=== PATIENT | male | born 1975 | race Caucasian/White ===

== ENCOUNTER 2024-09-25 15:49 | Inpatient (IN) | payer SELFPAY ==
[2024-09-25] VITALS (19 sets, daily range): BP systolic 95–121; BP diastolic 60–89; PULSE 69–106; RESP 14–24; TEMP 36.7; O2SAT 96–99
[~2024-09-25] VITALS: Ht 167.6 cm; Wt 77.1 kg
[2024-09-25] MEDS: HEPARIN 5000 UNITS/ML VIAL IV ONE (16:17)
[2024-09-25] MEDS: ASPIRIN 325MG TABLET PO ONE (16:17)
[2024-09-25] MEDS ORDERED: HEPARIN 1000 UNITS/ML 10ML ONE ×3 (16:17→17:32)
[2024-09-25] MEDS ORDERED: LIDOCAINE HCL 1% 20ML VIAL ONE (16:17)
[2024-09-25] MEDS: SODIUM CHLORIDE 0.9% 500 ML IV ONE (16:17)
[2024-09-25] MEDS ORDERED: IODIXANOL 320 MG/ML 150ML BOTTLE IV ONE (16:17)
[2024-09-25] MEDS ORDERED: MIDAZOLAM HCL 2 MG/2 ML VIAL ONE (16:33)
[2024-09-25] MEDS ORDERED: FENTANYL CITRATE/PF 50MCG/ML 2ML VIAL ONE (16:33)
[2024-09-25] MEDS ORDERED: EPINEPHRINE 0.1MG/ML (1:10,000) 10ML SYR ONE (16:36)
[2024-09-25] MEDS ORDERED: ATROPINE SULFATE 1MG/10ML SYR ONE (16:36)
[2024-09-25 16:40] LABS: BASOPHILS % 0.5 % (0.0-2.0); EOSINOPHILS % 0.7 % (0.0-5.0); HEMATOCRIT. 40.8 % (42.0-52.0); HEMOGLOBIN. 13.7 g/dL (14.0-18.0); LYMPHOCYTES % 20.9 % (20.0-50.0); MEAN CORPUSCULAR HEMOGLOBIN 29.1 pg (28.0-32.0); MEAN CORPUSCULAR HGB CONC 33.5 g/dL (31.0-37.0); MEAN CORPUSCULAR VOLUME 86.9 fL (80.0-94.0); MEAN PLATELET VOLUME 9.9 fl (7.4-10.4); MONOCYTES % 6.7 % (2.0-8.0); NEUTROPHILS % 71.2 % (40.0-76.0); PLATELET 274 x1000/uL (130-400); RED CELL DISTRIBUTION WIDTH 13.8 % (11.6-14.6); WHITE BLOOD COUNT 11.7 x1000/uL (4.5-11.0)
[2024-09-25 16:41] LABS: CHLORIDE 104 mEq/L (98-107); POTASSIUM 3.6 mEq/L (3.5-5.1); SODIUM 138 mEq/L (136-145)
[2024-09-25 16:42] LABS: CALCIUM 10.4 mg/dL (8.7-10.4); CARBON DIOXIDE 21 mEq/L (21-32)
[2024-09-25 16:47] LABS: CREATININE 1.7 mg/dL (0.6-1.3); GLUCOSE 159 mg/dL (70-105); UREA NITROGEN BLOOD 25 mg/dL (9-23)
[2024-09-25 16:48] LABS: TROPONIN I HIGH SENSITIVITY 31 ng/L (3.0-53)
[2024-09-25] MEDS ORDERED: TICAGRELOR 90 MG TABLET PO ONE (17:41)
[2024-09-25] MEDS ORDERED: ACETAMINOPHEN 325MG TABLET PO PRN ×2 (18:30)
[2024-09-25] MEDS ORDERED: DIPHENHYDRAMINE 50MG/ML VIAL IV PRN (18:30)
[2024-09-25] MEDS ORDERED: IPRATROPIUM/ALBUTEROL 0.5-3(2.5)MG/3ML NEB HHN PRN (18:30)
[2024-09-25] MEDS ORDERED: CLONIDINE 0.1MG TABLET PO PRN (18:30)
[2024-09-25] MEDS ORDERED: GUAIFENESIN 200MG/10ML SUGAR FREE UDC PO PRN (18:30)
[2024-09-25] MEDS ORDERED: ASPIRIN 81MG TABLET PO NR (18:45)
[2024-09-25] MEDS ORDERED: TICAGRELOR 90 MG TABLET PO SCH ×2 (18:45)
[2024-09-25] MEDS: PANTOPRAZOLE SODIUM 40 MG/VIAL IV SCH (18:55)
[2024-09-25] MEDS: LISINOPRIL 2.5MG TABLET PO SCH (18:55)
[2024-09-25] MEDS: CARVEDILOL 3.125 MG TABLET PO SCH (18:55)
[2024-09-25] MEDS: TICAGRELOR 90 MG TABLET PO SCH (20:10)
[2024-09-25] MEDS: ATORVASTATIN CALCIUM 40MG TABLET PO SCH (20:11)
[2024-09-25] MEDS: ONDANSETRON HCL 4MG/2ML INJ IV PRN (20:42)
[2024-09-25] MEDS: KCL 20MEQ/100ML PREMIX 100 ML IV NR (21:07)
[2024-09-25] MEDS ORDERED: NITROGLYCERIN 0.4MG TABLET SL SL PRN (21:15)
[2024-09-25 22:20] LABS: TROPONIN I HIGH SENSITIVITY 8066 ng/L (3.0-53)
[2024-09-25 22:30] LABS: HEPATITIS B SURFACE ANTIGEN NEGATIVE (Negative)
[2024-09-25 22:51] LABS: HEPATITIS C AB NON REACTIVE (Neg) (Negative)
[2024-09-25 23:13] LABS: CLARITY URINE CLEAR (CLEAR); COLOR URINE YELLOW (YELLOW); GLUCOSE URINE NEGATIVE (NEGATIVE); KETONES URINE NEGATIVE (NEGATIVE); LEUKOCYTE ESTERASE URINE NEGATIVE (NEGATIVE); NITRITE URINE NEGATIVE (NEGATIVE); OCCULT BLOOD URINE TRACE (NEGATIVE); PH URINE 6.5 (4.5-8.0); PROTEIN URINE 1+ (NEGATIVE); SPECIFIC GRAVITY URINE >1.040 (1.005-1.030); UROBILINOGEN URINE 0.2 E.U./dL (0.2-1.0)
[2024-09-25 23:20] LABS: *AMPHETAMINES SCREEN URINE NEGATIVE (NEGATIVE)
[2024-09-25 23:21] LABS: *BARBITURATES SCREEN URINE NEGATIVE (NEGATIVE); *BENZODIAZEPINES SCREEN URINE PRESUMPTIVE POSITIVE (NEGATIVE); *COCAINE SCREEN URINE NEGATIVE (NEGATIVE); CANNABINOID URINE SCREEN NEGATIVE (NEGATIVE); ECSTASY MDMA SCREEN URINE NEGATIVE (NEGATIVE); METHADONE URINE SCREEN NEGATIVE (NEGATIVE); OPIATES URINE SCREEN NEGATIVE (NEGATIVE); PHENCYCLIDINE URINE SCREEN NEGATIVE (NEGATIVE)
[2024-09-25 23:47] LABS: BACTERIA URINE TRACE; RBC URINE 0-2 /hpf (0-2); SQUAMOUS EPITHELIAL CELL URINE RARE /lpf (RARE/1+)
[2024-09-25 23:48] LABS: WBC URINE 0-2 /hpf (0-2)
[2024-09-26] VITALS (70 sets, daily range): BP systolic 86–123; BP diastolic 62–92; PULSE 51–83; RESP 11–25; TEMP 36.6–37.2; O2SAT 96–100
[2024-09-26 00:54] LABS: TROPONIN I HIGH SENSITIVITY 16098 ng/L (3.0-53)
[2024-09-26 02:40] LABS: CREATINE KINASE MB FRACTION 216.9 ng/mL (0.5-3.6)
[2024-09-26 06:23] LABS: BASOPHILS % 0.4 % (0.0-2.0); EOSINOPHILS % 0.9 % (0.0-5.0); HEMATOCRIT. 35.7 % (42.0-52.0); HEMOGLOBIN. 11.7 g/dL (14.0-18.0); LYMPHOCYTES % 19.5 % (20.0-50.0); MEAN CORPUSCULAR HEMOGLOBIN 29.1 pg (28.0-32.0); MEAN CORPUSCULAR HGB CONC 32.9 g/dL (31.0-37.0); MEAN CORPUSCULAR VOLUME 88.4 fL (80.0-94.0); MEAN PLATELET VOLUME 10.1 fl (7.4-10.4); MONOCYTES % 11.3 % (2.0-8.0); NEUTROPHILS % 67.9 % (40.0-76.0); PLATELET 219 x1000/uL (130-400); RED BLOOD CELL COUNT 4.04 mill/uL (4.7-6.1); RED CELL DISTRIBUTION WIDTH 13.9 % (11.6-14.6); WHITE BLOOD COUNT 7.9 x1000/uL (4.5-11.0)
[2024-09-26 06:37] LABS: CALCIUM 8.9 mg/dL (8.7-10.4); CHLORIDE 109 mEq/L (98-107); SODIUM 139 mEq/L (136-145)
[2024-09-26 06:38] LABS: CARBON DIOXIDE 22 mEq/L (21-32)
[2024-09-26 06:43] LABS: GLUCOSE 105 mg/dL (70-105); TRIGLYCERIDE 131 mg/dL (0-150); UREA NITROGEN BLOOD 27 mg/dL (9-23)
[2024-09-26 06:44] LABS: CREATINE KINASE MB FRACTION 281.6 ng/mL (0.5-3.6); LDL CHOLESTEROL 165 mg/dL (5-100)
[2024-09-26 06:45] LABS: CHOLESTEROL 226 mg/dL (<200); HDL CHOLESTEROL 40 mg/dL (>55)
[2024-09-26 06:46] LABS: T4 FREE 0.89 ng/dL (0.89-1.76)
[2024-09-26 06:47] LABS: THYROID STIMULATING HORMONE 0.34 uIU/mL (0.55-4.78)
[2024-09-26 06:55] LABS: CREATINE KINASE 2377 IU/L (46-171)
[2024-09-26 07:58] LABS: TROPONIN I HIGH SENSITIVITY 73102 ng/L (3.0-53)
[2024-09-26] MEDS: ASPIRIN 81MG TABLET PO SCH (08:59)
[2024-09-26 13:09] LABS: CREATINE KINASE MB FRACTION 241.7 ng/mL (0.5-3.6)
[2024-09-26 13:21] LABS: CREATINE KINASE 2120 IU/L (46-171)
[2024-09-26 13:45] LABS: TROPONIN I HIGH SENSITIVITY 69325 ng/L (3.0-53)
[2024-09-26 20:56] LABS: HEMATOCRIT 36.5 % (42.0-52.0); HEMOGLOBIN 12.1 g/dL (14.0-18.0); MEAN CORPUSCULAR HEMOGLOBIN 29.2 pg (28.0-32.0); MEAN CORPUSCULAR HGB CONC 33.2 g/dL (31.0-37.0); PLATELET 204 x1000/uL (130-400); RED BLOOD CELL COUNT 4.14 mill/uL (4.7-6.1); WHITE BLOOD COUNT 7.2 x1000/uL (4.5-11.0)
[2024-09-26 21:03] LABS: CHLORIDE 107 mEq/L (98-107); POTASSIUM 3.9 mEq/L (3.5-5.1); SODIUM 138 mEq/L (136-145)
[2024-09-26 21:04] LABS: CALCIUM 8.8 mg/dL (8.7-10.4); CARBON DIOXIDE 22 mEq/L (21-32)
[2024-09-26 21:09] LABS: CREATININE 1.1 mg/dL (0.6-1.3); GLUCOSE 111 mg/dL (70-105); TRIGLYCERIDE 136 mg/dL (0-150); UREA NITROGEN BLOOD 22 mg/dL (9-23)
[2024-09-26 21:10] LABS: ALANINE AMINOTRANSFERASE 73 IU/L (10-49); LDL CHOLESTEROL 154 mg/dL (5-100)
[2024-09-26 21:11] LABS: ALBUMIN 4.6 g/dL (3.2-4.8); ASPARTATE AMINOTRANSFERASE 212 IU/L (<34); BILIRUBIN TOTAL 0.9 mg/dL (0.1-1.0); CHOLESTEROL 217 mg/dL (<200); HDL CHOLESTEROL 38 mg/dL (>55); PROTEIN TOTAL 7.3 g/dL (6.0-8.3)
[2024-09-27] VITALS (74 sets, daily range): BP systolic 87–138; BP diastolic 53–117; PULSE 62–93; RESP 10–23; TEMP 36.4–37.1; O2SAT 96–99
[2024-09-27 06:49] LABS: CHLORIDE 107 mEq/L (98-107); POTASSIUM 3.9 mEq/L (3.5-5.1); SODIUM 141 mEq/L (136-145)
[2024-09-27 06:50] LABS: CARBON DIOXIDE 25 mEq/L (21-32)
[2024-09-27 06:52] LABS: BASOPHILS % 0.3 % (0.0-2.0); EOSINOPHILS % 1.7 % (0.0-5.0); HEMATOCRIT. 36.3 % (42.0-52.0); HEMOGLOBIN. 12.1 g/dL (14.0-18.0); LYMPHOCYTES % 23.2 % (20.0-50.0); MEAN CORPUSCULAR HEMOGLOBIN 29.3 pg (28.0-32.0); MEAN CORPUSCULAR HGB CONC 33.3 g/dL (31.0-37.0); MEAN CORPUSCULAR VOLUME 88.2 fL (80.0-94.0); MEAN PLATELET VOLUME 10.7 fl (7.4-10.4); MONOCYTES % 9.4 % (2.0-8.0); NEUTROPHILS % 65.4 % (40.0-76.0); PLATELET 204 x1000/uL (130-400); RED BLOOD CELL COUNT 4.12 mill/uL (4.7-6.1); RED CELL DISTRIBUTION WIDTH 13.5 % (11.6-14.6); WHITE BLOOD COUNT 7.7 x1000/uL (4.5-11.0)
[2024-09-27 06:55] LABS: CREATININE 1.1 mg/dL (0.6-1.3); GLUCOSE 99 mg/dL (70-105); UREA NITROGEN BLOOD 22 mg/dL (9-23)
[2024-09-27] MEDS: DOCUSATE SODIUM 100MG CAPSULE PO PRN (09:03)
[2024-09-27] MEDS: CARVEDILOL 12.5MG TABLET PO SCH (10:55)
[2024-09-27 12:43] LABS: CHLORIDE 107 mEq/L (98-107); POTASSIUM 3.8 mEq/L (3.5-5.1); SODIUM 138 mEq/L (136-145)
[2024-09-27 12:44] LABS: CARBON DIOXIDE 24 mEq/L (21-32)
[2024-09-27 12:49] LABS: GLUCOSE 106 mg/dL (70-105); UREA NITROGEN BLOOD 20 mg/dL (9-23)
[2024-09-27] MEDS: MAGNESIUM/ALUMINUM HYDROXIDE/SIMETHICONE 30ML UDC PO PRN (13:38)
[2024-09-27 18:36] LABS: PHOSPHORUS 3.2 mg/dL (2.5-4.9)
[2024-09-27] MEDS: NA PHOS,M-B/NA PHOS,DI-BA ENEMA 118ML PR PRN (20:30)
[2024-09-27] MEDS: CARVEDILOL 3.125 MG TABLET PO SCH (20:33)
[2024-09-28] VITALS (51 sets, daily range): BP systolic 99–142; BP diastolic 66–103; PULSE 59–89; RESP 10–22; TEMP 36.7–37.8; O2SAT 94–100
[2024-09-28 05:52] LABS: BASOPHILS % 0.4 % (0.0-2.0); EOSINOPHILS % 1.5 % (0.0-5.0); HEMATOCRIT. 38.2 % (42.0-52.0); HEMOGLOBIN. 12.8 g/dL (14.0-18.0); LYMPHOCYTES % 25.8 % (20.0-50.0); MEAN CORPUSCULAR HEMOGLOBIN 29.2 pg (28.0-32.0); MEAN CORPUSCULAR HGB CONC 33.5 g/dL (31.0-37.0); MEAN CORPUSCULAR VOLUME 87.1 fL (80.0-94.0); MEAN PLATELET VOLUME 10.1 fl (7.4-10.4); MONOCYTES % 10.1 % (2.0-8.0); NEUTROPHILS % 62.2 % (40.0-76.0); PLATELET 206 x1000/uL (130-400); RED BLOOD CELL COUNT 4.39 mill/uL (4.7-6.1); RED CELL DISTRIBUTION WIDTH 13.6 % (11.6-14.6); WHITE BLOOD COUNT 7.1 x1000/uL (4.5-11.0)
[2024-09-28 06:14] LABS: CHLORIDE 106 mEq/L (98-107); SODIUM 139 mEq/L (136-145)
[2024-09-28 06:15] LABS: CALCIUM 9.2 mg/dL (8.7-10.4); CARBON DIOXIDE 26 mEq/L (21-32)
[2024-09-28 06:20] LABS: GLUCOSE 104 mg/dL (70-105); UREA NITROGEN BLOOD 21 mg/dL (9-23)
[2024-09-28] MEDS ORDERED: IODIXANOL 320 MG/ML 150ML BOTTLE IV ONE (13:05)
[2024-09-28] MEDS ORDERED: HEPARIN 1000 UNITS/ML 10ML ONE ×2 (13:05→14:52)
[2024-09-28] MEDS ORDERED: LIDOCAINE HCL 1% 20ML VIAL ONE (13:05)
[2024-09-28] MEDS ORDERED: FENTANYL CITRATE/PF 50MCG/ML 2ML VIAL ONE (13:46)
[2024-09-28] MEDS ORDERED: MIDAZOLAM HCL 2 MG/2 ML VIAL ONE (13:47)
[2024-09-28] MEDS ORDERED: TICAGRELOR 90 MG TABLET PO ONE (15:07)
[2024-09-28] MEDS ORDERED: IODIXANOL 320MG/ML 100 ML BOTTLE IV ONE ×2 (15:11→15:45)
[2024-09-28] MEDS ORDERED: MORPHINE SULFATE 2 MG/ML INJ (NOT FOR IM USE) IV ONE (15:53)
[2024-09-28] MEDS: CLOPIDOGREL 75MG TABLET PO NR (17:10)
[2024-09-28] MEDS: MORPHINE SULFATE 2 MG/ML INJ (NOT FOR IM USE) IV NR (19:20)
[2024-09-28] MEDS: HYDROCORTISONE 1% CREAM 30GM TOP PRN (21:51)
[2024-09-29] VITALS (20 sets, daily range): BP systolic 112–134; BP diastolic 72–93; PULSE 60–75; RESP 12–20; TEMP 36.8–37.1; O2SAT 96–99
[2024-09-29 07:23] LABS: CALCIUM 9.2 mg/dL (8.7-10.4); CHLORIDE 102 mEq/L (98-107); POTASSIUM 3.8 mEq/L (3.5-5.1); SODIUM 139 mEq/L (136-145)
[2024-09-29 07:24] LABS: CARBON DIOXIDE 25 mEq/L (21-32)
[2024-09-29 07:29] LABS: GLUCOSE 103 mg/dL (70-105); UREA NITROGEN BLOOD 24 mg/dL (9-23)
[2024-09-29 07:35] LABS: BASOPHILS % 0.3 % (0.0-2.0); EOSINOPHILS % 0.9 % (0.0-5.0); HEMATOCRIT. 37.3 % (42.0-52.0); HEMOGLOBIN. 12.4 g/dL (14.0-18.0); LYMPHOCYTES % 18.2 % (20.0-50.0); MEAN CORPUSCULAR HEMOGLOBIN 28.9 pg (28.0-32.0); MEAN CORPUSCULAR HGB CONC 33.1 g/dL (31.0-37.0); MEAN CORPUSCULAR VOLUME 87.4 fL (80.0-94.0); MEAN PLATELET VOLUME 10.3 fl (7.4-10.4); MONOCYTES % 10.4 % (2.0-8.0); NEUTROPHILS % 70.2 % (40.0-76.0); PLATELET 208 x1000/uL (130-400); RED BLOOD CELL COUNT 4.27 mill/uL (4.7-6.1); RED CELL DISTRIBUTION WIDTH 13.8 % (11.6-14.6)
[2024-09-29] MEDS: CLOPIDOGREL 75MG TABLET PO SCH (08:27)
[2024-09-29] MEDS: KETOCONAZOLE 2% TOP SCH (10:00)
[2024-09-29] MEDS ORDERED: COR3 PO (10:31)
[2024-09-29] MEDS ORDERED: CLOP-31 PO (10:31)
[2024-09-29] MEDS ORDERED: LIP40 PO (10:31)
[2024-09-29] MEDS ORDERED: ASPI-1160 PO (10:31)
[2024-09-29] MEDS ORDERED: LISI2.5T47 PO (10:31)
== END 2024-09-29 11:34 | disposition home or self-care (01) | DRG 174 ==
LOC: ER 15:49 → EDBEDREQ 16:41 → EDBEDREQTM 16:41 → ENRESERV 16:54 → CVICU 18:18
PROVIDERS: ADMIT Internal Medicine; ATTEND Internal Medicine
PROC: 027034Z Dilation of Coronary Artery, One Artery with Drug-eluting Intraluminal Device, Percutaneous Approach (ICD-10-PCS; principal; 2024-09-25)
PROC: 4A023N7 Measurement of Cardiac Sampling and Pressure, Left Heart, Percutaneous Approach (ICD-10-PCS; 2024-09-25)
PROC: B2111ZZ Fluoroscopy of Multiple Coronary Arteries using Low Osmolar Contrast (ICD-10-PCS; 2024-09-25)
PROC: B2151ZZ Fluoroscopy of Left Heart using Low Osmolar Contrast (ICD-10-PCS; 2024-09-25)
PROC: B41F1ZZ Fluoroscopy of Right Lower Extremity Arteries using Low Osmolar Contrast (ICD-10-PCS; 2024-09-25)
PROC: 027136Z Dilation of Coronary Artery, Two Arteries with Three Drug-eluting Intraluminal Devices, Percutaneous Approach (ICD-10-PCS; 2024-09-28)
PROC: B241ZZ3 Ultrasonography of Multiple Coronary Arteries, Intravascular (ICD-10-PCS; 2024-09-28)
PROC: 4A023N7 Measurement of Cardiac Sampling and Pressure, Left Heart, Percutaneous Approach (ICD-10-PCS; 2024-09-28)
PROC: B211YZZ Fluoroscopy of Multiple Coronary Arteries using Other Contrast (ICD-10-PCS; 2024-09-28)
DX: I21.19 ST elevation (STEMI) myocardial infarction involving other coronary artery of inferior wall (principal); I50.31 Acute diastolic (congestive) heart failure; I11.0 Hypertensive heart disease with heart failure; I95.9 Hypotension, unspecified; I25.10 Atherosclerotic heart disease of native coronary artery without angina pectoris; Z86.19 Personal history of other infectious and parasitic diseases; E78.00 Pure hypercholesterolemia, unspecified; Z79.02 Long term (current) use of antithrombotics/antiplatelets; Z79.82 Long term (current) use of aspirin; Z79.899 Other long term (current) drug therapy; Z82.49 Family history of ischemic heart disease and other diseases of the circulatory system; R73.9 Hyperglycemia, unspecified; E03.8 Other specified hypothyroidism
CPT/HCPCS: 36415; 71045; 80048; 80053; 80061; 80305; 81003; 82550; 82553; 83036; 83735; 83880; 84100; 84439; 84443; 84484; 85025; 85027; 85347; 86705; 86850; 86900; 87340; 92928; 92941; 92978; 93005; 93306; 93454; 93458; 99285; A4606; C1725; C1753; C1769; C1874; C1887; C1893; J0461; J1644; J2250; J2270; J2405; J2470; J3010; J3480; J3490; J7040; Q9967; J8499